=== PATIENT | male | born 2000 | race Caucasian/White ===

== ENCOUNTER 2020-08-21 19:13 | Emergency (ER) | payer OTHER ==
[~2020-08-21] VITALS: Ht 180.3 cm; Wt 81.6 kg
[2020-08-21 19:26] VITALS: BP 124/76
--- NOTE | 2020-08-21 21:39 | NUR ---
PT AMBULATED TO BED 6
--- NOTE | 2020-08-21 22:01 | NUR ---
PT BIB SELF FOR LACERATION TO LEFT FOREARM AT 1800 THIS EVENING. PT REPORTS HE WAS WORKING ON HIS CAR WHEN THE GUILLEN FELL AND LANDED ON HIS LEFT FA. PT REPORTS PAIN 8/10, NUMBNESS AND TINGLING REPORTED, CAP REFILL < 3 SECONDS, SKIN IS WARM, DRY AND PINK. MED HX: DENIES ALLERGIES: NKA
--- NOTE | 2020-08-21 22:23 | NUR ---
Patient being evaluated by physician at bedside.
[2020-08-21] MEDS ORDERED: LIDOCAINE MPF 1% 10 MG/ML VIAL INJ ONE (22:30)
--- NOTE | 2020-08-21 23:23 | NUR ---
ERMD AT BEDSIDE.
[2020-08-21] MEDS ORDERED: BACITRACIN OINT 500 UNITS/GM PKT TP ONE ×2 (23:33→23:35)
--- NOTE | 2020-08-21 23:33 | NUR ---
PT WOUND COVERED WITH NON ADHERENT DRESSING AND WRAPPED WITH COFLEX TAPE AFTER BACITRACIN APPLIED. +CSM
[2020-08-21] MEDS ORDERED: ONDA-24 SL (23:40)
[2020-08-21] MEDS ORDERED: ACET-9527 PO (23:40)
[2020-08-21] MEDS ORDERED: BEN10 PO (23:40)
--- NOTE | 2020-08-21 23:50 | NUR ---
Patient discharged with v/s stable. Written and verbal after care instructions given and explained. Patient verbalized understanding. Ambulatory with steady gait. All questions addressed prior to discharge. Advised to follow up with PMD.
== END 2020-08-21 23:50 | disposition home or self-care (01) ==
LOC: MED 19:13
DX: S51.812A Laceration without foreign body of left forearm, initial encounter (principal); W20.8XXA Other cause of strike by thrown, projected or falling object, initial encounter; Y93.89 Activity, other specified; Y92.89 Other specified places as the place of occurrence of the external cause; Y99.8 Other external cause status
CPT/HCPCS: 12001; 99282; J2001

== ENCOUNTER 2020-08-29 18:44 | Emergency (ER) | payer OTHER ==
[~2020-08-29] VITALS: Ht 180.3 cm; Wt 81.2 kg
[2020-08-29 19:14] VITALS: BP 119/66
[2020-08-29 19:50] VITALS: BP 119/66
== END 2020-08-29 19:50 | disposition home or self-care (01) ==
LOC: MED 18:44
DX: S41.112D Laceration without foreign body of left upper arm, subsequent encounter (principal); Z48.00 Encounter for change or removal of nonsurgical wound dressing; X58.XXXD Exposure to other specified factors, subsequent encounter
CPT/HCPCS: 99281

== ENCOUNTER 2022-03-27 08:19 | Emergency (ER) | payer OTHER ==
[~2022-03-27] VITALS: Ht 180.3 cm; Wt 82.6 kg
--- NOTE | 2022-03-27 08:35 | NUR ---
PT AMB TO BED 6
[2022-03-27 08:38] VITALS: BP 122/72
--- NOTE | 2022-03-27 08:47 | NUR ---
Pt bibs for abd pain starting yesterday after dinner. Pt states he consumed [place]or[place] food gifted from his employer and immediately had stomach pain and diarrhea. Pt states he was vomiting all night and once this morning. Pt as abd pain, 8, non radiating, center abd, constant, worse with movement. Pt is a/ox 4, vss, no ss of acute distress, breathing equal and unlabored, speech clear.
[2022-03-27] MEDS ORDERED: FAMO-92 PO (09:24)
[2022-03-27] MEDS ORDERED: ONDA-188 PO (09:24)
[2022-03-27] MEDS ORDERED: ATRO1TAB PO (09:24)
[2022-03-27] MEDS: FAMOTIDINE 20 MG TAB PO ONE (09:33)
[2022-03-27 09:34] VITALS: BP 124/71
--- NOTE | 2022-03-27 09:35 | NUR ---
Md spoke with pt, then gave order for dc after meds. Pt medicated as ordered, tolerated well. ACI/px given and reviewed with pt. Pt verbalized understanding and will follow up with primary. Pt a/o x 4, vss, no ss of acute distress, breathing equal and unlabored, steady gait witnessed, pt instructed to come back for worsening symptoms.
== END 2022-03-27 09:30 | disposition home or self-care (01) ==
LOC: MED 08:19
DX: R11.2 Nausea with vomiting, unspecified (principal); R19.7 Diarrhea, unspecified; Z79.899 Other long term (current) drug therapy
CPT/HCPCS: 99283